=== PATIENT | male | born 1965 | race Caucasian/White ===

== ENCOUNTER → 2024-08-31 08:14 | Outpatient (REF) | payer BC, SELFPAY | LOC: PAVMRI 08:14 | PROVIDERS: ATTENDING PHYSICIAN Physician Assistant Medical; FAMILY PHYSICIAN Family Medicine; REFERRING PHYSICIAN Orthopaedic Surgery Adult Reconstructive Orthopaedic Surgery | DX: M16.12 Unilateral primary osteoarthritis, left hip (principal) | CPT/HCPCS: 73721 ==

== ENCOUNTER → 2024-10-06 08:54 | Outpatient (REF) | payer BC, SELFPAY | LOC: RAD 08:54 | PROVIDERS: ATTENDING PHYSICIAN Physician Assistant Medical; FAMILY PHYSICIAN Family Medicine | DX: S52.532A Colles' fracture of left radius, initial encounter for closed fracture (principal) | CPT/HCPCS: 73200 ==

== ENCOUNTER → 2025-02-12 08:20 | Outpatient (REF) | payer BC, SELFPAY | LOC: RAD 08:20 | PROVIDERS: ATTENDING PHYSICIAN Family Medicine | DX: R04.1 Hemorrhage from throat (principal) | CPT/HCPCS: 76536 ==